=== PATIENT | female | born 1995 | race Caucasian/White ===

== ENCOUNTER 2018-09-18 15:04 | Inpatient (IN) | payer OTHER ==
[2018-09-18 17:02] LABS: ABS Eosinophils 0.1 10^3/ul (0-0.6); ABS Lymphocytes 1.5 10^3/ul (1.0-4.8); ABS Monocytes 0.6 10^3/ul (0-0.8); Eosinophil % 0.8 %; Hematocrit 41 % (35-47); Hemoglobin 14.3 g/dL (12.0-16.0); Lymphocyte % 14.7 %; Mean Corpuscular HGB Conc 35 g/dL (31-36); Mean Corpuscular Hemoglobin 30 pg (27-31); Mean Corpuscular Volume 85 fL (80-97); Mean Platelet Volume 7.3 fL (7.4-10.4); Platelet Count 286 10^3/uL (150-450); Red Blood Count 4.83 10^6 /uL (3.70-4.87); Red Cell Distribution Width 13 % (10-15); White Blood Count 10.3 10^3/uL (3.5-10.8)
[2018-09-18 17:18] LABS: Albumin 4.6 g/dL (3.2-5.2); Anion Gap 6 mmol/L (2-11); CO2 Carbon Dioxide 28 mmol/L (22-32); Calcium 9.9 mg/dL (8.6-10.3); Chloride 104 mmol/L (101-111); Potassium 4.3 mmol/L (3.5-5.0); Sodium 138 mmol/L (135-145)
[2018-09-18 17:25] LABS: ALT 44 U/L (7-52); AST 110 U/L (13-39); Albumin/Globulin Ratio 1.8 (1-3); Alkaline Phosphatase 64 U/L (34-104); Blood Urea Nitrogen 8 mg/dL (6-24); C Reactive Protein < 1.00 mg/L (<8.01); EGFR Non-African American 101.6 (>60); Globulin 2.5 g/dL (2-4); Glucose 93 mg/dL (70-100); Total Protein 7.1 g/dL (6.4-8.9)
[2018-09-18 17:27] LABS: HCG Pregnancy < 0.60 mIU/mL
[2018-09-18 17:50] LABS: Urine Appearance Clear; Urine Bilirubin Negative (Negative); Urine Blood Negative (Negative); Urine Color Yellow; Urine Glucose Negative (Negative); Urine Ketones Negative (Negative); Urine Nitrite Negative (Negative); Urine Protein Negative (Negative); Urine Specific Gravity 1.009 (1.010-1.030); Urine Urobilinogen Negative (Negative)
[2018-09-18] MEDS ORDERED: Ondansetron INJ* 2 MG/ML VIAL IV ONE (17:51)
[2018-09-18] MEDS ORDERED: NS 0.9% 1000 ML** 1,000 ML IV ONE (17:51)
[2018-09-18] MEDS ORDERED: Morphine 4 MG/ML VIAL (1 ml) 4 MG/ML VIAL IV ONE ×3 (17:51→21:51)
--- NOTE | 2018-09-18 19:31 | ED ---
Abdominal Pain/Female - HPI Summary HPI Summary: Patient complains of sudden onset bilateral lower abdominal pain starting this morning with associated nausea and shortness of breath. Patient describes pain as constant, new onset, 8/10, worse with walking, lying down and after urination. Denies fever, cough, sore throat, CP, SOB, V/D, change in urine, change in BM, vaginal symptoms. Medical history is none. Abdominal surgical history is appendectomy. LMP July. Patient has Nexplanon implant, history of irregular periods - History of Current Complaint Chief Complaint: EDAbdPain Stated Complaint: SEVERE CRAMPS PER PATIENT Time Seen by Provider: 09/18/18 17:35 Hx Obtained From: Patient Hx Last Menstrual Period: 06/06/12 Onset/Duration: Sudden Onset, Lasting Hours Timing: Constant Severity Initially: Moderate Severity Currently: Moderate Pain Intensity: 5 Pain Scale Used: 0-10 Numeric Location: Discrete At: RLQ, Discrete At: LLQ, Suprapubic Radiates: No Character: Cramping Aggravating Factor(s): Movement Alleviating Factor(s): Nothing Associated Signs and Symptoms: Positive: Nausea Allergies/Adverse Reactions: Allergies Allergy/AdvReac Type Severity Reaction Status Date / Time No Known Allergies Allergy Verified 01/07/15 14:02 PMH/Surg Hx/FS Hx/Imm Hx Endocrine/Hematology History: Denies: Hx Anticoagulant Therapy, Hx Diabetes, Hx Thyroid Disease Cardiovascular History: Denies: Hx Hypertension, Hx Pacemaker/ICD, Other Cardiovascular Problems/ Disorders Respiratory History: Reports: Hx Asthma - exercise induced, has inhaler Denies: Hx Chronic Obstructive Pulmonary Disease (COPD), Other Respiratory Problems/Disorders History: Denies: Hx Renal Disease Sensory History: Reports: Hx Contacts or Glasses - contacts, will wear glasses Denies: Hx Hearing Aid Opthamlomology History: Reports: Hx Contacts or Glasses - contacts, will wear glasses Neurological History: Denies: Hx Dementia, Hx Seizures Psychiatric History: Denies: Hx Autism, Hx Substance Abuse - Surgical History Surgery Procedure, Year, and Place: 04/2011 APPENDECTOMY [facility] Hx Anesthesia Reactions: No - Immunization History Date of Tetanus Vaccine: UTD Date of Influenza Vaccine: UNK Infectious Disease History: No Infectious Disease History: Denies: Hx Hepatitis, Hx Human Immunodeficiency Virus (HIV), Traveled Outside the [place] in Last 30 Days - Family History Known Family History: Positive: Non-Contributory - Social History Alcohol Use: Occasionally Substance Use Type: Reports: None Smoking Status (MU): Never Smoked Tobacco Have You Smoked in the Last Year: No Review of Systems Constitutional: Negative Eyes: Negative ENT: Negative Cardiovascular: Negative Respiratory: Negative Positive: Abdominal Pain Genitourinary: Negative Musculoskeletal: Negative Skin: Negative Neurological: Negative Psychological: Normal All Other Systems Reviewed And Are Negative: Yes Physical Exam - Summary Physical Exam Summary: Mild tenderness diffusely with palpation of abdomen. Triage Information Reviewed: Yes Vital Signs On Initial Exam: Initial Vitals Temp Pulse Resp BP Pulse Ox 98.2 F 81 16 124/88 99 09/18/18 15:28 09/18/18 15:28 09/18/18 15:28 09/18/18 15:28 09/18/18 15:28 Vital Signs Reviewed: Yes Appearance: Positive: Well-Appearing Skin: Positive: Warm Head/Face: Positive: Normal Head/Face Inspection Eyes: Positive: Normal Neck: Positive: Supple Respiratory/Lung Sounds: Positive: Clear to Auscultation Cardiovascular: Positive: Normal Abdomen Description: Positive: Other: Musculoskeletal: Positive: Normal Neurological: Positive: Normal Psychiatric: Positive: Normal AVPU Assessment: Alert - Harleen Coma Scale Best Eye Response: 4 - Spontaneous Best Motor Response: 6 - Obeys Commands Best Verbal Response: 5 - Oriented Coma Scale Total: 15 Diagnostics - Vital Signs Vital Signs Temp Pulse Resp BP Pulse Ox 09/18/18 18:21 18 09/18/18 15:28 98.2 F 81 16 124/88 99 - Laboratory Lab Results: Lab Results 09/18/18 09/18/18 09/18/18 Range/Units 16:56 16:56 16:56 WBC 10.3 (3.5-10.8) 10^3/uL RBC 4.83 (3.70-4.87) 10^6 /uL Hgb 14.3 (12.0-16.0) g/dL Hct 41 (35-47) % MCV 85 (80-97) fL MCH 30 (27-31) pg MCHC 35 (31-36) g/dL RDW 13 (10-15) % Plt Count 286 (150-450) 10^3/uL MPV 7.3 L (7.4-10.4) fL Neut % (Auto) 78.4 % Lymph % (Auto) 14.7 % [place] % (Auto) 5.6 % Eos % (Auto) 0.8 % Baso % (Auto) 0.5 % Absolute Neuts (auto) 8.0 H (1.5-7.7) 10^3/ul Absolute Lymphs (auto) 1.5 (1.0-4.8) 10^3/ul Absolute Monos (auto) 0.6 (0-0.8) 10^3/ul Absolute Eos (auto) 0.1 (0-0.6) 10^3/ul Absolute Basos (auto) 0.0 (0-0.2) 10^3/ul Absolute Nucleated RBC 0.0 10^3/ul Nucleated RBC % 0.0 Sodium 138 (135-145) mmol/L Potassium 4.3 (3.5-5.0) mmol/L Chloride 104 (101-111) mmol/L Carbon Dioxide 28 (22-32) mmol/L Anion Gap 6 (2-11) mmol/L BUN 8 (6-24) mg/dL Creatinine 0.73 (0.51-0.95) mg/dL Est GFR ( Amer) 123.0 (>60) Est GFR (Non-Af Amer) 101.6 (>60) BUN/Creatinine Ratio 11.0 (8-20) Glucose 93 (70-100) mg/dL Lactic Acid 0.9 (0.5-2.0) mmol/L Calcium 9.9 (8.6-10.3) mg/dL Total Bilirubin 0.50 (0.2-1.0) mg/dL AST 110 H (13-39) U/L ALT 44 (7-52) U/L Alkaline Phosphatase 64 (34-104) U/L C-Reactive Protein < 1.00 (<8.01) mg/L Total Protein 7.1 (6.4-8.9) g/dL Albumin 4.6 (3.2-5.2) g/dL Globulin 2.5 (2-4) g/dL Albumin/Globulin Ratio 1.8 (1-3) Lipase 21 (11.0-82.0) U/L Beta HCG, Quant < 0.60 mIU/mL Urine Color Urine Appearance Urine pH (5-9) Ur Specific [place] (1.010-1.030) Urine Protein (Negative) Urine Ketones (Negative) Urine Blood (Negative) Urine Nitrate (Negative) Urine Bilirubin (Negative) Urine Urobilinogen (Negative) Ur Leukocyte Esterase (Negative) Urine Glucose (Negative) 09/18/18 Range/Units 17:38 WBC (3.5-10.8) 10^3/uL RBC (3.70-4.87) 10^6 /uL Hgb (12.0-16.0) g/dL Hct (35-47) % MCV (80-97) fL MCH (27-31) pg MCHC (31-36) g/dL RDW (10-15) % Plt Count (150-450) 10^3/uL MPV (7.4-10.4) fL Neut % (Auto) % Lymph % (Auto) % [place] % (Auto) % Eos % (Auto) % Baso % (Auto) % Absolute Neuts (auto) (1.5-7.7) 10^3/ul Absolute Lymphs (auto) (1.0-4.8) 10^3/ul Absolute Monos (auto) (0-0.8) 10^3/ul Absolute Eos (auto) (0-0.6) 10^3/ul Absolute Basos (auto) (0-0.2) 10^3/ul Absolute Nucleated RBC 10^3/ul Nucleated RBC % Sodium (135-145) mmol/L Potassium (3.5-5.0) mmol/L Chloride (101-111) mmol/L Carbon Dioxide (22-32) mmol/L Anion Gap (2-11) mmol/L BUN (6-24) mg/dL Creatinine (0.51-0.95) mg/dL Est GFR ( Amer) (>60) Est GFR (Non-Af Amer) (>60) BUN/Creatinine Ratio (8-20) Glucose (70-100) mg/dL Lactic Acid (0.5-2.0) mmol/L Calcium (8.6-10.3) mg/dL Total Bilirubin (0.2-1.0) mg/dL AST (13-39) U/L ALT (7-52) U/L Alkaline Phosphatase (34-104) U/L C-Reactive Protein (<8.01) mg/L Total Protein (6.4-8.9) g/dL Albumin (3.2-5.2) g/dL Globulin (2-4) g/dL Albumin/Globulin Ratio (1-3) Lipase (11.0-82.0) U/L Beta HCG, Quant mIU/mL Urine Color Yellow Urine Appearance Clear Urine pH 6.0 (5-9) Ur Specific [place] 1.009 L (1.010-1.030) Urine Protein Negative (Negative) Urine Ketones Negative (Negative) Urine Blood Negative (Negative) Urine Nitrate Negative (Negative) Urine Bilirubin Negative (Negative) Urine Urobilinogen Negative (Negative) Ur Leukocyte Esterase Negative (Negative) Urine Glucose Negative (Negative) Result Diagrams: 09/18/18 16:56 09/18/18 16:56 Lab Statement: Any lab studies that have been ordered have been reviewed, and results considered in the medical decision making process. Abdominal Pain Fem Course/Dx - Course Course Of Treatment: Patient complains of sudden onset bilateral lower abdominal pain starting this morning with associated nausea and shortness of breath. Patient describes pain as constant, new onset, 8/10, worse with walking , lying down and after urination. Denies fever, cough, sore throat, CP, SOB, V/ D, change in urine, change in BM, vaginal symptoms. Medical history is none. Abdominal surgical history is appendectomy. LMP July. Patient has Nexplanon implant, history of irregular periods. Vital signs within normal limits. Labs unremarkable. negative. Transvaginal ultrasound positive for large heterogeneous partly solid partly cystic mass in the left adnexa with no normal left ovary visualized in this location. This left adnexal mass measures 9.5 x 5.3 x 5.5 cm without significant internal color Doppler flow. There is also moderate to significant free fluid in the pelvis and bilateral adnexa. Patient was in pain during the sonographic evaluation. Cannot exclude left ovarian torsion. Discussed findings with AUTOMOTIVE SERVICE PROFESSIONAL cotton bag clipper Dr. segovia who will come in to evaluate and admit patient. Patient's pain controlled with 4 mg of morphine IV 2. 1 L normal saline administered. 1 L lactated Ringer's administered. Zofran 4 mg IV. Admitted to AUTOMOTIVE SERVICE PROFESSIONAL Dr. Segovia. - Diagnoses Provider Diagnoses: Torsion of left ovary and ovarian pedicle Discharge - Sign-Out/Discharge Documenting (check all that apply): Patient Departure Patient Received Moderate/Deep Sedation with Procedure: No - Discharge Plan Condition: Good Disposition: ADMITTED TO [facility] - [facility] Disposition and Condition Condition: GOOD Disposition: Admitted to [facility]
[2018-09-18] MEDS ORDERED: Lactated Ringers 1000 ML Bag* 1,000 ML IV SCH (20:36)
[2018-09-18] MEDS ORDERED: Ondansetron TAB* 4 MG PO PRN (22:02)
[2018-09-18] MEDS ORDERED: Albuterol HFA INHALER* 8 gm MDI INH PRN (22:10)
--- NOTE | 2018-09-18 22:17 | HP ---
General Information - Reason for Visit PT HAS ACUTE PELVIC PAIN SINCE THIS AM. - General Information Maternal Age: 22 Grav: 0 Determined By: JULY 2018 Gestational Age in Weeks/Days: NA Past Medical History Pertinent Past Medical History: Non-Contributory Pertinent Past Surgical History: See Records Past Surgical History Comment: HX OF LAPAROSCOPIC APPENDECTOMY. Pertinent Family History: Non-Contributory - PT IS NOT . SHE HAS A 9.5 CM LEFT OVARIAN CYST. Review of Systems Constitutional: Uncomfortable CV Complaint: Yes - PELVIC PAIN Gastrointestinal: No Nausea/Vomiting Genitourinary: Dysuria Musculoskeletal: No Complaint Neurological: No Headache Movement: Absent Exam Allergies/Adverse Reactions: Allergies No Known Allergies Allergy (Verified 01/07/15 14:02) Vital Signs 09/18/18 09/18/18 09/18/18 15:28 17:52 18:04 Temperature 98.2 F Pulse Rate 81 86 85 Respiratory 16 Rate Blood Pressure 124/88 130/85 (mmHg) O2 Sat by Pulse 99 100 99 Oximetry 09/18/18 09/18/18 09/18/18 18:21 18:24 19:05 Temperature Pulse Rate 92 75 Respiratory 18 Rate Blood Pressure 120/80 (mmHg) O2 Sat by Pulse 97 Oximetry 09/18/18 09/18/18 09/18/18 19:24 19:54 20:00 Temperature Pulse Rate 68 82 73 Respiratory Rate Blood Pressure 70/55 110/73 (mmHg) O2 Sat by Pulse 100 100 100 Oximetry 09/18/18 09/18/18 09/18/18 20:24 20:53 21:16 Temperature Pulse Rate Respiratory 16 Rate Blood Pressure 98/61 126/82 (mmHg) O2 Sat by Pulse Oximetry 09/18/18 21:54 Temperature Pulse Rate Respiratory 18 Rate Blood Pressure (mmHg) O2 Sat by Pulse Oximetry Lab Values - Entire Visit: Laboratory Tests 09/18/18 09/18/18 09/18/18 16:56 16:56 16:56 WBC 10.3 RBC 4.83 Hgb 14.3 Hct 41 MCV 85 MCH 30 MCHC 35 RDW 13 Plt Count 286 MPV 7.3 L Neut % (Auto) 78.4 Lymph % (Auto) 14.7 [place] % (Auto) 5.6 Eos % (Auto) 0.8 Baso % (Auto) 0.5 Absolute Neuts (auto) 8.0 H Absolute Lymphs (auto) 1.5 Absolute Monos (auto) 0.6 Absolute Eos (auto) 0.1 Absolute Basos (auto) 0.0 Absolute Nucleated RBC 0.0 Nucleated RBC % 0.0 Sodium 138 Potassium 4.3 Chloride 104 Carbon Dioxide 28 Anion Gap 6 BUN 8 Creatinine 0.73 Est GFR ( Amer) 123.0 Est GFR (Non-Af Amer) 101.6 BUN/Creatinine Ratio 11.0 Glucose 93 Lactic Acid 0.9 Calcium 9.9 Total Bilirubin 0.50 AST 110 H ALT 44 Alkaline Phosphatase 64 C-Reactive Protein < 1.00 Total Protein 7.1 Albumin 4.6 Globulin 2.5 Albumin/Globulin Ratio 1.8 Lipase 21 Beta HCG, Quant < 0.60 Urine Color Urine Appearance Urine pH Ur Specific [place] Urine Protein Urine Ketones Urine Blood Urine Nitrate Urine Bilirubin Urine Urobilinogen Ur Leukocyte Esterase Urine Glucose Blood Type 09/18/18 09/18/18 16:56 17:38 WBC RBC Hgb Hct MCV MCH MCHC RDW Plt Count MPV Neut % (Auto) Lymph % (Auto) [place] % (Auto) Eos % (Auto) Baso % (Auto) Absolute Neuts (auto) Absolute Lymphs (auto) Absolute Monos (auto) Absolute Eos (auto) Absolute Basos (auto) Absolute Nucleated RBC Nucleated RBC % Sodium Potassium Chloride Carbon Dioxide Anion Gap BUN Creatinine Est GFR ( Amer) Est GFR (Non-Af Amer) BUN/Creatinine Ratio Glucose Lactic Acid Calcium Total Bilirubin AST ALT Alkaline Phosphatase C-Reactive Protein Total Protein Albumin Globulin Albumin/Globulin Ratio Lipase Beta HCG, Quant Urine Color Yellow Urine Appearance Clear Urine pH 6.0 Ur Specific [place] 1.009 L Urine Protein Negative Urine Ketones Negative Urine Blood Negative Urine Nitrate Negative Urine Bilirubin Negative Urine Urobilinogen Negative Ur Leukocyte Esterase Negative Urine Glucose Negative Blood Type B Positive - Measurements Height: 5 ft 3 in Weight: 120 lb Body Mass Index (BMI): 21.2 - Exam Breast: - - WNL CVA: No CVA Tenderness Extremities: No Edema Heart: Normal Rhythm/Heart Sounds HEENT: No Significant Findings Lungs: Clear Bilaterally Rectal: Rectal Exam Deferred Reflexes: DTR 2+ Thyroid: No Thyromegaly - Abdominal Exam Abdomen Exam Comment: BILATERLA LOWER ABD PAIN. Targeted Exam Findings Cervical Exam: Closed - PT HAS ACUTE LEFT PELVIC PAIN EFM Findings - External Monitor Findings Baseline Heart Rate: 0 - PT IS NOT Assessment/Plan - Assessment LARGE LEFT ADHEXAL MASS WITH SEVERE PAIN. - Date/Time of Admission Date of Admission: 09/18/18 - PLAN DIAG LAP WITH POSSIBLE REMOVAL OF LEFT OVARY.
[2018-09-18] MEDS: Lactated Ringers 1000 ML Bag* 1,000 ML IV SCH (22:44)
[2018-09-19] MEDS: Morphine INJ* 2 MG/ML 1 ML SYRINGE (TWO MG - NEW SYRINGE VERSION) IV PRN ×4 (00:12→09:08)
[2018-09-19] MEDS: Lactated Ringers 1000 ML Bag* 1,000 ML IV SCH (06:51)
[2018-09-19] MEDS ORDERED: Bupivacaine 0.5% W/EPI SDV* 30 ML VIAL ONE (10:33)
[2018-09-19] MEDS ORDERED: fentaNYL* 50 MCG/ML 2 ML VIAL (100 MCG VIAL) ONE (10:50)
[2018-09-19] MEDS ORDERED: Midazolam* 1 MG/ML 5 ML VIAL (5 MG) ONE (10:51)
[2018-09-19] MEDS ORDERED: Rocuronium* 10 MG/ML VIAL ONE (11:04)
[2018-09-19] MEDS ORDERED: Ketorolac INJ* 30 MG/ML 1 ML VIAL ONE (11:15)
[2018-09-19] MEDS ORDERED: Propofol* 10 MG/ML 20 ML BTL ONE (11:15)
[2018-09-19] MEDS ORDERED: Dexamethasone IV* 4 MG/ML 1 ML (4 MG) ONE (11:15)
[2018-09-19] MEDS ORDERED: Ondansetron INJ* 2 MG/ML VIAL ONE (11:15)
[2018-09-19] MEDS ORDERED: Succinylcholine* 20 MG/ML 10 ML VIAL ONE (11:15)
[2018-09-19] MEDS ORDERED: DiMENhydriNATE IV* 50 MG/ML VIAL ONE (11:15)
[2018-09-19] MEDS ORDERED: Lidocaine 2% PF * 5 ML VIAL ONE (11:15)
--- NOTE | 2018-09-19 12:00 | OP ---
Operative Report - Detailed - Operation Details Date of Operation: 09/19/18 Surgeon(s): CALEB Sandstone Splitter(s): KALPANA Anesthesiologist(s): CHRIS Anesthesia: GENERAL WITH INTUBATION Pre-Op Diagnosis: LEFT OVARIAN CYST WITH POSSIBLE TORSION. ACUTE PELVIC PAIN Post-Op Diagnosis: HEMOPERITONEUM. RUPTURED LEFT OVARIAN CORPUS LUTEUM CYST. ACUTE PELVIC PAIN Planned Operative Procedure(s): DIAGNOSTIC LAPAROSCOPIC WITH POSSIBLE LEFT OOPHORECTOMY Estimated Blood Loss: 100CCS Specimen(s)/Culture(s) Description: NONE Drains: LOPEZ Counts: CORRECT Wound Classification: CLEAN Complications: NONE Findings: RUPTURED LEFT CORPUS LUTEUM CYST WITH 100 CCS BLOOD IN PELVIS. NO ADHESIONS. NO ENDOMETRIOSIS. Brief History/Indications: ACUTE PELVIC PAIN AND U/S C/W POSSIBLE TORSION OF LEFT OVARY WITH 9.5 CM CYST ON LEFT OVARY. Description of Procedure: DIAG LAP WITH 5MM SCOPE AND SECOND PUNCTURE 5MM TO DRAIN BLOOD. CORPUS LUTEUM CYST SEEN ON LEFT OVARY STOPPED BLEEDING. NO ADHESIONS. NO NEED TO DRAIN THE LEFT OVARY. NO 9.5 CM CYST WAS SEEN.
[2018-09-19] MEDS ORDERED: DiMENhydriNATE IV* 50 MG/ML VIAL IV PUSH PRN (12:05)
[2018-09-19] MEDS ORDERED: oxyCODONE TAB* 5 MG TAB PO PRN (12:05)
[2018-09-19] MEDS ORDERED: HYDROmorphone INJ1* 1 MG/ML SYRINGE IV PRN (12:05)
[2018-09-19] MEDS ORDERED: Naloxone* 0.4 MG/ML 1 ML VIAL IV PRN (12:05)
[2018-09-19] MEDS ORDERED: Acetaminophen TAB* 325 MG PO PRN (12:05)
[2018-09-19] MEDS ORDERED: Ibuprofen TAB* 400 MG PO PRN (12:14)
[2018-09-19] MEDS ORDERED: PROCHLORPERAZINE INJ 5 MG/ML 2 ML VIAL IV ONE (12:16)
--- NOTE | 2018-09-19 12:56 | OP ---
OPERATIVE REPORT: DATE OF OPERATION: 09/19/18 DATE OF : [birth year] SURGEON: Dina Basilio MD. TIE TAPE MACHINE OPERATOR: Andrew Prince MD. ANESTHESIOLOGIST: Dr. Schmidt. ANESTHESIA: General with intubation. PRE-OP DIAGNOSES: 1. Possible left ovarian cyst 9.5 cm with possible torsion. 2. Acute pelvic pain. POST-OP DIAGNOSES: 1. Hemoperitoneum with a ruptured left ovarian corpus luteum cyst, 9.5 cm cyst in the ovary. 2. Acute pelvic pain. OPERATIVE PROCEDURE: Diagnostic laparoscopy with drainage of blood from the pelvis with a suction ir rigator. DRAINS: In and out of the bladder. COMPLICATIONS: None. FINDINGS: 100 cc of blood in the pelvis, ruptured left corpus luteum cyst of the left ovary. No adh esions. No evidence of endometriosis. INDICATIONS FOR SURGERY: The patient had an ultrasound consistent with a 9.5 cm left ovarian cyst wi th possible torsion on ultrasound and acute pelvic pain and so we needed to do a diagnostic laparosco py. DESCRIPTION OF PROCEDURE: The patient was taken to the operating room, placed in the supine position , given general anesthetic with intubation, placed in Umberto stirrups, and prepped and draped in the u sual manner. A sponge stick was placed inside the vagina. We did time-out before we put the sponge stick in the vagina. We made a small 5-mm incision at the infraumbilical fold and inserted a Veress n eedle into the peritoneal cavity. 2 L of carbon dioxide was used to obtain pneumoperitoneum. Veress needle was removed. Then, the Visi trocar 5 mm was inserted with the scope, 5 mm inside the sheath for visualization until we entered the peritoneal cavity. The bladeless portion of the trocar was re moved. The scope was placed inside the sheath and the above findings were noted. We did a second pu ncture with a 5-mm bladeless trocar in the midline just above the pubic symphysis, and we placed a bl unt probe through this area, and we were able to manipulate the uterus, and we could see the patient had blood in the pelvis and cul- de-sac and there was a ruptured corpus luteum cyst that stopped blee ding and that not needed to be drained. We used aspirator-electrical electronics engineers to remove as much blood as we co uld out of the pelvic cavity. This was probably causing most of the pain that the patient was having . Once we had done this, we irrigated and seeing no further procedure was indicated, all instruments were removed from the abdominal cavity except for the sheath. The sheath was then removed after we let gas out of the abdomen. The skin incisions were closed with Dermabond. The sponge stick in the vagina was removed. The patient tolerated the procedure well. She was then returned to the recovery room in stable condition. [id number]/[facility] #: [id number]
[2018-09-19 13:58] VITALS: BP 109/68
[2018-09-19] MEDS ORDERED: oxyCODONE TAB* 5 MG TAB ONE (14:01)
[2018-09-19] MEDS ORDERED: Ibuprofen TAB* 400 MG ONE (14:02)
[2018-09-19] MEDS ORDERED: Acetaminophen TAB* 325 MG ONE (14:02)
== END 2018-09-19 15:31 | disposition home or self-care (01) | DRG 981 ==
LOC: ED 15:04 → SSU 22:02
PROC: 0W9J4ZZ Drainage of Pelvic Cavity, Percutaneous Endoscopic Approach (ICD-10-PCS; principal; 2018-09-19 09:30)
DX: N83.12 Corpus luteum cyst of left ovary (principal); K66.1 Hemoperitoneum; N83.512 Torsion of left ovary and ovarian pedicle; J45.990 Exercise induced bronchospasm; R40.2412 Glasgow coma scale score 13-15, at arrival to emergency department; Z72.89 Other problems related to lifestyle
CPT/HCPCS: 36415; 76830; 80053; 81003; 83605; 83690; 84702; 85025; 86140; 86850; 86900; 86901; 99283; A9270-GY; J0330; J1100; J1240; J1885; J2250; J2270; J2405; J2704; J3010

== ENCOUNTER 2022-09-07 00:53 | Inpatient (IN) ==
[2022-09-07 01:41] LABS: Urine Benzodiazepine Screen None Detected (None Detect); Urine Opiates Screen None Detected (None Detect)
[2022-09-07] MEDS ORDERED: Lactated Ringers 1000 ml BAG 1,000 ML IV ONE ×2 (01:44→18:50)
[2022-09-07] MEDS ORDERED: Buffered Lidocaine 1% SYRIN 1 ml INTRADERM ONE (01:44)
[2022-09-07] MEDS ORDERED: Promethazine INJ(RESTRICTED) 25 MG/ML 1 ml VIAL IV PRN (01:44)
[2022-09-07] MEDS ORDERED: miSOPROStol 100 mcg TAB PO ONE (01:44)
[2022-09-07] MEDS ORDERED: Penicillin G Potassium IV 5,000,000 UNITS in NS 0.9% 100 ml BAG 100 ML IVPB ONE (01:44)
[2022-09-07] MEDS ORDERED: Buffered Lidocaine 1% SYRIN 1 ml ONE (01:45)
[2022-09-07] MEDS ORDERED: Lactated Ringers 1000 ml BAG 1,000 ML IV SCH ×2 (02:00→19:00)
[2022-09-07 03:12] LABS: ABS Eosinophils 0.1 10^3/uL (0.0-0.5); ABS Lymphocytes 1.3 10^3/uL (1.0-4.8); ABS Monocytes 0.7 10^3/uL (0.0-0.9); ABS Neutrophils 8.4 10^3/uL (1.5-7.6); ABS Nucleated RBC 0.02 10^3/ul; Eosinophil % 0.5 %; Hematocrit 33.3 % (35-45); Hemoglobin 11.5 g/dL (11.5-14.3); Lymphocyte % 12.5 %; Mean Corpuscular Hemoglobin 28.8 pg (27-33); Mean Corpuscular Hgb Conc 34.4 g/dL (31-36); Mean Corpuscular Volume 83.7 fL (80-97); Mean Platelet Volume 8.8 fL (7.5-11.2); Nucleated Red Blood Cells % 0.1 /100 WBC (0.0-0.4); Platelet Count 256 10^3/uL (150-450); Red Blood Count 3.98 10^6/uL (3.63-4.92); Red Cell Distribution Width 13.1 % (12-17); White Blood Count 10.4 10^3/uL (3.8-11.8)
[2022-09-07] MEDS: Penicillin G Potassium IV 3,000,000 UNITS in NS 0.9% 100 ml BAG 100 ML IVPB SCH ×5 (06:45→22:55)
[2022-09-07] MEDS ORDERED: Oxytocin in LR 20,000 MILLI.UNIT/1,000 ML BAG IV SCH (13:00)
[2022-09-07] MEDS ORDERED: OBEPIDURAL (200 ML) 200 ML EPIDURAL ONE (18:04)
[2022-09-07] MEDS ORDERED: Lidocaine 1.5% EPI 1:200,000 30 ML SDV ONE (18:04)
[2022-09-07] MEDS ORDERED: Bupivacaine 0.25% SDV PF 10 ML VIAL INJ ONE ×2 (18:25)
[2022-09-07] MEDS ORDERED: Phenylephrine 40 mcg/mL 10mL (400mcg) SYRINGE IV PUSH PRN ×2 (18:50)
[2022-09-07] MEDS ORDERED: OBEPIDURAL (200 ML) 200 ML EPIDURAL SCH (19:00)
[2022-09-07 19:58] LABS: Urine Appearance Clear; Urine Bilirubin Negative (Negative); Urine Blood 1+ (Negative); Urine Color Yellow; Urine Glucose Negative (Negative); Urine Ketones 1+ (Negative); Urine Nitrite Negative (Negative); Urine Protein Negative (Negative); Urine Specific Gravity 1.013 (1.002-1.030); Urine Urobilinogen Negative (Negative)
[2022-09-07 20:09] LABS: Urine Bacteria 1+ (Absent); Urine Red Blood Cell 3+(>10/hpf) (Absent); Urine Squamous Epithelial Cell Present (Absent); Urine White Blood Cell 1+(6-10/hpf) (Absent)
[2022-09-07] MEDS ORDERED: Ondansetron 4 mg VIAL 2 MG/ML 2 ml VIAL IV ONE (23:25)
[2022-09-08] MEDS ORDERED: Methylergonovine 0.2 mg AMPULE 1 ml AMP ONE (02:29)
[2022-09-08] MEDS ORDERED: ceFOXitin 2 GM IVPREMIX 2 GM/50 ML BAG ONE (02:41)
[2022-09-08] MEDS ORDERED: Methylergonovine 0.2 mg AMPULE 1 ml AMP IM ONE (02:56)
[2022-09-08] MEDS ORDERED: Witch Hazel PAD JAR TOPICAL PRN (02:56)
[2022-09-08] MEDS ORDERED: Dibucaine 1% OINT 28.35 GM TUBE PR PRN (02:56)
[2022-09-08] MEDS ORDERED: Oxytocin 10 UNITS/ML 1 ML VIAL IM ONE (02:56)
[2022-09-08] MEDS ORDERED: ceFOXitin 2 GM IVPREMIX 2 GM/50 ML BAG IVPB ONE (02:58)
[2022-09-08] MEDS ORDERED: Oxytocin in LR 20,000 MILLI.UNIT/1,000 ML BAG IV SCH (03:00)
[2022-09-08] MEDS ORDERED: Lactated Ringers 1000 ml BAG 1,000 ML IV SCH (03:00)
[2022-09-09 07:37] LABS: ABS Eosinophils 0.1 10^3/uL (0.0-0.5); ABS Lymphocytes 1.3 10^3/uL (1.0-4.8); ABS Monocytes 0.5 10^3/uL (0.0-0.9); ABS Neutrophils 6.4 10^3/uL (1.5-7.6); Eosinophil % 1.4 %; Hematocrit 25.3 % (35-45); Hemoglobin 8.9 g/dL (11.5-14.3); Lymphocyte % 15.8 %; Mean Corpuscular Hemoglobin 29.6 pg (27-33); Mean Corpuscular Volume 84.8 fL (80-97); Mean Platelet Volume 8.2 fL (7.5-11.2); Platelet Count 182 10^3/uL (150-450); Red Blood Count 2.99 10^6/uL (3.63-4.92); Red Cell Distribution Width 13.1 % (12-17); White Blood Count 8.4 10^3/uL (3.8-11.8)
[2022-09-10 10:33] VITALS: BP 103/75
== END 2022-09-10 12:25 | disposition home or self-care (01) | DRG 807 ==
LOC: MCHOBOUT 00:53 → MCHOB 01:38
PROVIDERS: ADMIT Advanced Practice Midwife; ATTEND Advanced Practice Midwife

== ENCOUNTER 2024-04-09 09:15 | Inpatient (IN) ==
[2024-04-09] MEDS ORDERED: Nalbuphine 10 MG/ML 1 ML VIAL IV PRN (10:08)
[2024-04-09] MEDS ORDERED: Lidocaine 1% VIAL 10 MG/ML 30 ML VIAL INJ PRN (10:08)
[2024-04-09] MEDS ORDERED: Prochlorperazine 5 mg/ml 2 ml VIAL (10 mg) IV PRN (10:08)
[2024-04-09 12:30] LABS: Urine Benzodiazepine Screen None Detected (None Detect); Urine Cannabinoids Screen None Detected (None Detect); Urine Opiates Screen None Detected (None Detect)
[2024-04-09] MEDS: Lactated Ringers 1000 ml BAG 1,000 ML IV SCH (12:38)
[2024-04-09] MEDS: Oxytocin in NS 30,000 MILLI.UNIT/500 ML BAG IV SCH ×2 (12:40→19:10)
[2024-04-09 12:47] LABS: ABS Lymphocytes 0.9 10^3/uL (1.0-4.8); ABS Monocytes 0.4 10^3/uL (0.0-0.9); ABS Neutrophils 6.9 10^3/uL (1.5-7.6); Eosinophil % 0.4 %; Hematocrit 33.2 % (35-45); Hemoglobin 11.2 g/dL (11.5-14.3); Lymphocyte % 10.9 %; Mean Corpuscular Hgb Conc 33.7 g/dL (31-36); Mean Corpuscular Volume 80.3 fL (80-97); Mean Platelet Volume 7.7 fL (7.5-11.2); Platelet Count 248 10^3/uL (150-450); Red Blood Count 4.13 10^6/uL (3.63-4.92); Red Cell Distribution Width 13.7 % (12-17); White Blood Count 8.3 10^3/uL (3.8-11.8)
[2024-04-09] MEDS: OBEPIDURAL (200 ML) 200 ML EPIDURAL ONE (14:39)
[2024-04-09] MEDS ORDERED: Phenylephrine 40 mcg/mL 10mL (400mcg) SYRINGE IV PUSH PRN ×2 (14:51)
[2024-04-09] MEDS ORDERED: Sodium Citrate/Citric Acid LIQ 15 ML UDC PO PRN (14:51)
[2024-04-09 16:47] LABS: Urine Appearance Turbid; Urine Bilirubin Negative (Negative); Urine Blood 3+ (Negative); Urine Glucose Negative (Negative); Urine Ketones 1+ (Negative); Urine Nitrite Negative (Negative); Urine Protein 1+ (>=30 mg/dL) (Negative); Urine Specific Gravity 1.023 (1.002-1.030); Urine Urobilinogen 1+ (Negative)
[2024-04-09 16:54] LABS: Urine Bacteria Absent /HPF (Absent); Urine Red Blood Cell 3+(>10/hpf) /HPF (0-Trace); Urine White Blood Cell 1+(6-10/hpf) /HPF (0-Trace)
[2024-04-09 16:55] LABS: Urine Color Light-Orange
[2024-04-09] MEDS ORDERED: Glycerin ADULT 2.4 gm SUPP PR PRN (19:29)
[2024-04-09] MEDS ORDERED: Polyethylene Glycol 3350 17 GM PACKET PO PRN (19:29)
[2024-04-09] MEDS: Lidocaine/Epinephrin 1.5%/200 5 ML AMP INJ ONE (19:48)
[2024-04-09] MEDS: Witch Hazel PAD JAR TOPICAL PRN (21:04)
[2024-04-09] MEDS: Dibucaine 1% OINT 28.35 GM TUBE PR PRN (21:04)
[2024-04-09] MEDS: Tranexamic Acid 1 GM/100ML BAG 0 MG/0 ML BAG IV ONE (22:51)
[2024-04-10] MEDS: Buffered Lidocaine 1% SYRIN 1 ml INTRADERM ONE (02:04)
[2024-04-10] MEDS: Lactated Ringers 1000 ml BAG 1,000 ML IV SCH (02:06)
[2024-04-10] MEDS: Lactated Ringers 1000 ml BAG 1,000 ML IV ONE ×2 (02:06)
[2024-04-10] MEDS: OBEPIDURAL (200 ML) 200 ML EPIDURAL SCH (02:07)
[2024-04-10 06:41] LABS: ABS Eosinophils 0.1 10^3/uL (0.0-0.5); ABS Lymphocytes 1.1 10^3/uL (1.0-4.8); ABS Monocytes 0.6 10^3/uL (0.0-0.9); ABS Neutrophils 7.1 10^3/uL (1.5-7.6); Eosinophil % 0.8 %; Hematocrit 25.1 % (35-45); Hemoglobin 8.8 g/dL (11.5-14.3); Mean Corpuscular Hemoglobin 27.8 pg (27-33); Mean Corpuscular Hgb Conc 34.9 g/dL (31-36); Mean Corpuscular Volume 79.9 fL (80-97); Mean Platelet Volume 7.6 fL (7.5-11.2); Platelet Count 181 10^3/uL (150-450); Red Blood Count 3.14 10^6/uL (3.63-4.92); Red Cell Distribution Width 13.8 % (12-17); White Blood Count 8.8 10^3/uL (3.8-11.8)
[2024-04-10] MEDS: Iron Sucrose 200 MG in NS 0.9% 100 ml BAG 100 ML IVPB ONE (14:48)
[2024-04-11 07:25] LABS: Hematocrit 26.6 % (35-45); Hemoglobin 9.2 g/dL (11.5-14.3)
[2024-04-11 09:24] VITALS: BP 99/69
== END 2024-04-11 15:00 | disposition home or self-care (01) | DRG 807 ==
LOC: MCHOBOUT 09:15 → MCHOB 10:38
PROVIDERS: ADMIT Obstetrics & Gynecology